=== PATIENT | female | born 1990 | race Hispanic/Latino ===

== ENCOUNTER 2020-07-16 15:58 | Outpatient (CLI) | payer BC ==
[2020-07-16 16:24] LABS: Bacteria,Urine 4+ /HPF (Negative); Bilirubin,Urine NEG (Negative); Blood,Urine SM (Negative); Color,Urine Yellow (Yellow); Mucus,Urine FEW /HPF; Urobilinogen,Urine < 2.0 mg/dL (<2.0)
[2020-07-16 16:34] LABS: WBC,Urine > 182.0 /HPF (0.0-6.0)
== END 2020-07-16 15:59 | disposition home or self-care (01) ==
LOC: LAB 15:58
PROVIDERS: ATTEND Internal Medicine
DX: N39.0 Urinary tract infection, site not specified (principal)
CPT/HCPCS: 81001; 87076; 87086; 87186

== ENCOUNTER 2020-07-18 20:38 | Emergency (ER) | payer BC ==
[2020-07-18 21:28] VITALS: BP 140/86
[2020-07-18 21:55] LABS: Basophils # (Auto) 0.1 K/mm3 (0.0-0.1); Basophils % (Auto) 1.4 % (0.0-1.8); Eosinophils # (Auto) 0.1 K/mm3 (0.0-0.4); Eosinophils % (Auto) 0.8 % (0.0-4.3); Hematocrit 40.7 % (30.3-42.9); Hemoglobin 14.3 gm/dl (10.1-14.3); Lymphocytes # (Auto) 2.1 K/mm3 (1.2-5.4); Lymphocytes % (Auto) 20.6 % (13.4-35.0); Mean Corpuscular HGB Conc 35 % (30-34); Mean Corpuscular Volume 93 fl (79-97); Monocytes # (Auto) 0.7 K/mm3 (0.0-0.8); Monocytes % (Auto) 6.3 % (0.0-7.3); Platelet Count 493 K/mm3 (140-440); Red Blood Count 4.39 M/mm3 (3.65-5.03); Red Cell Distribution Width 13.4 % (13.2-15.2)
[2020-07-18 22:09] LABS: Bilirubin,Urine NEG (Negative); Blood,Urine NEG (Negative); Color,Urine Amber (Yellow); Mucus,Urine 1+ /HPF
[2020-07-18 22:13] LABS: BUN/Creatinine Ratio 19; Blood Urea Nitrogen 17 mg/dL (7-17); Hemolysis Index 16
[2020-07-19] MEDS ORDERED: SODIUM CHLORIDE 0.9% 1000 ML 1,000 ML IV ONE (00:50)
[2020-07-19] MEDS ORDERED: cefTRIAXone/NS 1 GM/50 ML 1 GM/50 ML BAG IV ONE (00:50)
[2020-07-19] MEDS ORDERED: HYDROcodone/ACETAMINOPHEN 5-325 MG TAB PO ONE (00:55)
[2020-07-19] MEDS ORDERED: PHENAZOPYRIDINE 100 MG TAB PO ONE (01:12)
--- NOTE | 2020-07-19 01:33 | Emergency Department Report ---
ED Female HPI - General Chief complaint: Abdominal Pain Stated complaint: KIDNEY PAIN Time Seen by Provider: 07/19/20 00:50 Source: patient Mode of arrival: Ambulatory Limitations: No Limitations - History of Present Illness Initial comments: 29-year-old -Indian female presents to the emergency room for lower abdominal pressure and left flank pain since Monday. Patient reports that she has been having urinary symptoms for a week but went to see Dr. Linda Christensen on and he placed her on Cipro she started on Monday. Patient states that her urinary symptoms have gotten worse. Patient reports she has been taking ibuprofen every 4-6 hours. Patient states that she has left flank pain. She denies any hematuria no vaginal discharge vaginal bleeding. Is been taken Azo's for her symptoms. Denies any fever chills no nausea no vomiting, no diaphoresis. MD Complaint: dysuria Location: suprapubic Radiation: LLQ Severity: severe Severity scale (0 -10): 8 Quality: sharp, stabbing Consistency: intermittent Improves with: none Worsens with: urination Are you Now?: No Associated Symptoms: abdominal pain. denies: vaginal discharge, vaginal bleedin g, nausea/vomiting, fever/chills, headaches - Related Data Allergies Allergy/AdvReac Type Severity Reaction Status Date / Time Sulfa (Sulfonamide Allergy Rash,HIVES Unverified 07/16/20 15:58 Antibiotics) hydromorphone [From Dilaudid] AdvReac Itching Verified 07/19/20 02:43 ED Review of Systems ROS: Stated complaint: KIDNEY PAIN Other details as noted in HPI Comment: All other systems reviewed and negative Genitourinary: dysuria. 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 delivery - Surgical History Past Surgical History?: Yes Additional Surgical History: Left foot - Social History Smoking Status: Former Smoker Substance Use Type: None ED Physical Exam - General Limitations: No Limitations General appearance: alert, in no apparent distress - Head Head exam: Present: atraumatic, normocephalic - Eye Eye exam: Present: normal appearance - ENT ENT exam: Present: mucous membranes moist ED Course Vital Signs 07/18/20 21:26 Temperature 98.1 F Pulse Rate 82 Respiratory 18 Rate Blood Pressure 140/86 O2 Sat by Pulse 96 Oximetry - Reevaluation(s) Reevaluation #1: 07/19/20 03:48 Patient reports she feels much better after having treatment. ED Medical Decision Making - Lab Data Result diagrams: 07/18/20 21:42 07/18/20 21:42 - Medical Decision Making 29-year-old -Indian female presents to the emergency room for lower a bdominal pressure and left flank pain since Monday. Patient reports that she has been having urinary symptoms for a week but went to see Dr. Linda Christensen on and he placed her on Cipro she started on Monday. Patient states that her urinary symptoms have gotten worse. Patient reports she has been taking ibuprofen every 4-6 hours. Patient states that she has left flank pain. She denies any hematuria no vaginal discharge vaginal bleeding. Is been taken Azo's for her symptoms. Denies any fever chills no nausea no vomiting, no diaphoresis. CBC CMP within normal limits. Urinalysis shows that she has 28 WBCs nitrate positive negative on the leukoesterase. Patient was started on IV with normal saline Rocephin 1 g and Eudora 5/325 p.o. Critical care attestation.: If time is entered above; I have spent that time in minutes in the direct care of this critically ill patient, excluding procedure time. ED Disposition Clinical Impression: UTI (urinary tract infection) Disposition: TO HOME OR SELFCARE Is pt being admited?: No Does the pt Need Aspirin: No Condition: Stable Instructions: Urinary Tract Infection in Women (ED), Abdominal Pain (ED) Additional Instructions: Continue with your antibiotics at this point as prescribed by you by your primary care provider. You can take the Pyridium to help with the urethra spasms. Tylenol or ibuprofen. Ibuprofen every 6-8 hours and Tylenol every 4-6 hours. Referrals: PRIMARY CAREMD [Primary Care Provider] - 3-5 Days EFREN RODRÍGUEZ MD [Staff Physician] - 3-5 Days
== END 2020-07-19 04:00 | disposition home or self-care (01) ==
LOC: ED 20:38
DX: N39.0 Urinary tract infection, site not specified (principal); Z87.891 Personal history of nicotine dependence; Z79.2 Long term (current) use of antibiotics; Z88.8 Allergy status to other drugs, medicaments and biological substances
CPT/HCPCS: 36415; 80048; 81001; 84703; 85025; 87086; 96361; 96365; 99283; J0696; J7030

== ENCOUNTER 2020-11-03 09:00 | Outpatient (CLI) | payer BC | END 2020-11-03 09:01 | disposition home or self-care (01) | LOC: ECHO 09:00 | PROVIDERS: ATTEND Internal Medicine | DX: O90.3 Peripartum cardiomyopathy (principal) | CPT/HCPCS: 93306 ==

== ENCOUNTER 2021-01-22 12:00 | Emergency (ER) | payer BC ==
--- NOTE | 2021-01-22 12:14 | Emergency Department Report ---
Minor Respiratory - HPI Chief Complaint: Dyspnea/Respdistress Stated Complaint: POSITIVE COVID AT [facility]/PNEUMONIA Severity: moderate Minor Respiratory: Yes Able to Tolerate Fluids, Yes Shortness of Breath, No Rhinorrhea, No Sore Throat, No Ear Pain, No Cough, No Sick Contacts, No Hemoptysis, No Chest Pain, No Fever Other History: This is a 30-year-old female who presents the ED complaining of shortness of breath. Patient states she was seen at [facility] emergency room where she was diagnosed with bilateral pneumonia and Covid positive. Patient states she called her primary care physician today and was so she needed to be admitted. Patient states she was given Rocephin in the ED as well as a prescription for azithromycin. Patient states that she presents here because she was told by her primary care to come to the emergency room. Patient denies fever stating that she takes Tylenol every 6 hours. She denies chest pain, inability to breathe. ED Review of Systems ROS: Stated complaint: POSITIVE COVID AT [facility]/PNEUMONIA Other details as noted in HPI Comment: All other systems reviewed and negative ED Past Medical Hx - Past Medical History Hx Hypertension: Yes Hx Diabetes: Yes Additional medical history: CHF after delivery/ HIGH CHOLESTROL - Surgical History Additional Surgical History: Left foot - Social History Smoking Status: Never Smoker Substance Use Type: None - Medications Home Medications: Home Medications Medication Instructions Recorded Confirmed Last Taken Type Albuterol Mdi (or & Nicu Only) 2 puff IH QID PRN #8.5 gram 01/22/21 Unknown Rx [ProAir HFA Inhaler] AtorvaSTATin [Lipitor] 40 mg PO QHS 01/22/21 01/22/21 Unknown History Escitalopram [Lexapro] 10 mg PO DAILY 01/22/21 01/22/21 Unknown History Famotidine [Pepcid] 40 mg PO DAILY 01/22/21 01/22/21 Unknown History Glimepiride [Amaryl] 4 mg PO QAM 01/22/21 01/22/21 Unknown History Losartan [Cozaar] 25 mg PO QDAY 01/22/21 01/22/21 Unknown History Minor Respiratory Exam - Exam General: Vital signs noted. No distress. Alert and acting appropriately. HEENT: Yes Moist Mucous Membranes, No Pharyngeal Erythema, No Pharyngeal Exudates, No Rhinorrhea, No Conjuctival Injection, No Frontal Tenderness, No Maxillary Tenderness Ear: Neither TM Bulge, Neither TM Erythema, Neither EAC Pain, Neither EAC Discharge Neck: Yes Supple, No Adenopathy Lungs: Yes Good Air Exchange, No Wheezes, No Ronchi, No Stridor, No Cough, No Labored Respirations, No Retractions, No Use of Accessory Muscles, No Other Abnormal Lung Sounds Heart: Yes Regular, No Murmur Abdomen: Yes Normal Bowel Sounds, No Tenderness, No Peritoneal Signs Skin: No Rash, No Edema Neurologic: Alert and oriented, no deficits. Musculoskeletal: Unremarkable. ED Course Vital Signs 01/22/21 12:02 Temperature 98.3 F Pulse Rate 103 H Respiratory 28 H Rate Blood Pressure 117/82 O2 Sat by Pulse 96 Oximetry ED Medical Decision Making - Radiology Data Radiology results: report reviewed, image reviewed XR chest 1V ap INDICATION / CLINICAL INFORMATION: SOB, +covid COMPARISON: None available. FINDINGS: SUPPORT DEVICES: None. HEART / MEDIASTINUM: No significant abnormality. LUNGS / PLEURA: Patchy bilateral airspace disease in a peripheral predilection. Costophrenic sulci are sharp. No pneumothorax. ADDITIONAL FINDINGS: No significant additional findings. IMPRESSION: 1. Bilateral airspace disease with classic imaging features of Covid pneumonia. Signer Name: Tony Colvin MD Signed: 01/22/2021 1:05 PM Workstation Name: [id number] Transcribed By: SUSANA Dictated By: Tony Colvin MD Electronically Authenticated By: Tony Colvin MD Signed Date/Time: 01/22/21 1305 - Medical Decision Making Patient is presenting with COVID-19 pneumonia SHe has no past medical history. Her vitals are stable, no hypoxia, no fever. No abnormality on physical exam as documented in chart. Vital signs are positive for tachycardia otherwise patient is satting at 98% on room air. Walking sats stayed at 97% on room air. Pulse increased with exertion Due to patient presenting with COVID-19., discussed self quarantine with patient, discussed strict return precautions, discussed primary care reexamination advised pt to increase your water intake over the next several days as well is vitamin C in zinc daily. May take Tylenol as needed for body aches or fever. May take [id number] medication to treat your symptoms. Follow-up with a primary care doctor in the next 2 to 3 days. Return to emergency room immediately for any new or worsening symptoms including but not limited to shortness of breath, difficulty breathing, severe chest pain, unable to tolerate by mouth intake, etc. Please self quarantine for 2 weeks from the onset of your symptoms. Please do not go out in public. If you are at home around othe rs please wear a mask. If you need to cough or sneeze please do so in a napkin and immediately wash your hands. Wash your hands frequently. Wipe everything down. X1 day complaining of shortness of breath. Discussed with patient to get a humidifier as well as pulse ox and may use at home. Discussed with patient any pulse ox dropping and worsening symptoms she should return to the ED immediately. Critical care attestation.: If time is entered above; I have spent that time in minutes in the direct care of this critically ill patient, excluding procedure time. ED Disposition Clinical Impression: Pneumonia due to COVID-19 virus Disposition: DC- TO HOME OR SELFCARE Is pt being admited?: No Does the pt Need Aspirin: No Condition: Stable Instructions: COVID-19, Bacterial Pneumonia (ED) Additional Instructions: Make sure to follow up with the primary care physician as discussed. Take all your medications as you've been prescribed. Purchase near immediate fire as well as O2 pulse ox to measure your pulse ox at home daily. If you have any worsening symptoms or develop new symptoms please return to ED immediately. Prescriptions: Albuterol Mdi (or & Nicu Only) [ProAir HFA Inhaler] 2 puff IH QID PRN #8.5 gram PRN Reason: Shortness Of Breath Referrals: EFREN RODRÍGUEZ MD [Primary Care Provider] - 3-5 Days Forms: Work/School Release Form(ED) Time of Disposition: 13:59
[2021-01-22] MEDS ORDERED: ALBUTEROL 2.5 MG/3 ML NEBU IH ONE (12:19)
[2021-01-22] MEDS ORDERED: dexAMETHasone 20 MG/5 ML VIAL IM ONE (12:20)
--- NOTE | 2021-01-22 13:09 | XRay Report ---
XR chest 1V ap INDICATION / CLINICAL INFORMATION: SOB, +covid COMPARISON: None available. FINDINGS: SUPPORT DEVICES: None. HEART / MEDIASTINUM: No significant abnormality. LUNGS / PLEURA: Patchy bilateral airspace disease in a peripheral predilection. Costophrenic sulci ar e sharp. No pneumothorax. ADDITIONAL FINDINGS: No significant additional findings. IMPRESSION: 1. Bilateral airspace disease with classic imaging features of Covid pneumonia. Signer Name: Tony Colvin MD Signed: 01/22/2021 1:05 PM Workstation Name: [id number]
[2021-01-22 14:47] VITALS: BP 110/77
== END 2021-01-22 14:47 | disposition home or self-care (01) ==
LOC: ED 12:00
DX: J12.82 Pneumonia due to coronavirus disease 2019 (principal); I10 Essential (primary) hypertension; E11.9 Type 2 diabetes mellitus without complications; Z79.899 Other long term (current) drug therapy; Z88.2 Allergy status to sulfonamides; Z88.8 Allergy status to other drugs, medicaments and biological substances
CPT/HCPCS: 71045; 94640; 96372; 99283; J1100; 94644

== ENCOUNTER 2021-03-11 15:30 | Outpatient (CLI) | payer BC ==
[2021-03-11 16:24] LABS: Basophils # (Auto) 0.1 K/mm3 (0.0-0.1); Basophils % (Auto) 1.1 % (0.0-1.8); Eosinophils # (Auto) 0.1 K/mm3 (0.0-0.4); Eosinophils % (Auto) 1.1 % (0.0-4.3); Hematocrit 39.2 % (30.3-42.9); Hemoglobin 13.6 gm/dl (10.1-14.3); Lymphocytes # (Auto) 2.3 K/mm3 (1.2-5.4); Mean Corpuscular HGB Conc 35 % (30-34); Mean Corpuscular Volume 94 fl (79-97); Monocytes # (Auto) 0.5 K/mm3 (0.0-0.8); Monocytes % (Auto) 5.7 % (0.0-7.3); Platelet Count 406 K/mm3 (140-440); Red Blood Count 4.19 M/mm3 (3.65-5.03); Red Cell Distribution Width 13.4 % (13.2-15.2)
[2021-03-11 16:55] LABS: Chol/HDL Ratio 3.7 %
== END 2021-03-11 15:31 | disposition home or self-care (01) ==
LOC: LAB 15:30
PROVIDERS: ATTEND Internal Medicine
DX: E78.5 Hyperlipidemia, unspecified (principal); E11.9 Type 2 diabetes mellitus without complications; O90.3 Peripartum cardiomyopathy
CPT/HCPCS: 36415; 80061; 82306; 83036; 85025

== ENCOUNTER 2021-05-24 15:32 | Outpatient (CLI) | payer BC ==
[2021-05-24 16:30] LABS: Alanine Aminotransferase 53 units/L (7-56); Albumin 4.3 g/dL (3.9-5); Blood Urea Nitrogen 12 mg/dL (7-17); Chol/HDL Ratio 3.84 %; HDL Cholesterol 44 mg/dL (40-59); Hemolysis Index 5; LDL Cholesterol,Direct 112 mg/dL (50-130)
[2021-05-24 16:34] LABS: BUN/Creatinine Ratio 17
== END 2021-05-24 15:33 | disposition home or self-care (01) ==
LOC: LAB 15:32
PROVIDERS: ATTEND Internal Medicine
DX: E11.9 Type 2 diabetes mellitus without complications (principal); R19.7 Diarrhea, unspecified; R53.83 Other fatigue; E78.5 Hyperlipidemia, unspecified; Z98.890 Other specified postprocedural states
CPT/HCPCS: 36415; 80053; 80061; 82607; 83036; 84443; 85007; 87177

== ENCOUNTER 2021-05-28 07:06 | Outpatient (CLI) | payer BC ==
--- NOTE | 2021-05-28 15:28 | Ultrasound Report ---
ULTRASOUND ABDOMEN, COMPLETE INDICATION / CLINICAL INFORMATION: UNSPECIFIED ABDOMINAL PAIN. COMPARISON: None available. FINDINGS: PANCREAS: Diffuse fatty infiltration without evidence of mass or ductal dilatation. ABDOMINAL AORTA: No significant abnormality. IVC: No significant abnormality. LIVER: The liver is normal in size measuring 14.2 cm with moderate diffuse increased echogenicity com pared to the right renal cortex. No focal lesion. Normal hepatopedal blood flow within the main shara l vein. GALLBLADDER: Possible 3 mm polyp near the body/neck of the gallbladder, however this is not well eval uated on today's exam. The gallbladder is mildly contracted. No evidence of significant wall thickeni ng or pericholecystic fluid. BILE DUCTS: No significant abnormality. Common bile duct measures 4 mm. KIDNEYS: Right: The right kidney measures 10.9 cm. No significant abnormality. Left: The left kidney measures 10.7 cm. No significant abnormality. SPLEEN: The spleen measures 9.1 cm. No significant abnormality. FREE FLUID: None. ADDITIONAL FINDINGS: None. IMPRESSION: 1. Moderate diffuse fatty infiltration of the liver. 2. Mildly contracted gallbladder with a possible small gallbladder polyp. No acute abnormality of the gallbladder is seen.. Scribed by: Codi Montes De Oca RDMS, RVT Scribed: 05/28/2021 2:12 PM I have reviewed the images, agree with this report, and edited this report as needed. Signer Name: Anders Houston MD Signed: 05/28/2021 3:24 PM Workstation Name: [id number]
== END 2021-05-28 07:07 | disposition home or self-care (01) ==
LOC: US 07:06
PROVIDERS: ATTEND Internal Medicine
DX: K76.0 Fatty (change of) liver, not elsewhere classified (principal); K82.0 Obstruction of gallbladder
CPT/HCPCS: 76700